=== PATIENT | female | born 1985 | race Two or more races ===

== ENCOUNTER 2019-02-25 22:29 | Emergency (ER) | payer OTHER ==
[~2019-02-25] VITALS: Ht 157.5 cm; Wt 62.0 kg
[2019-02-26] MEDS ORDERED: IBUPROFEN 600MG TABLET PO SCH (02:08)
[2019-02-26 02:47] VITALS: BP 131/86
== END 2019-02-26 02:48 | disposition home or self-care (01) ==
LOC: ER 22:29
DX: S16.1XXA Strain of muscle, fascia and tendon at neck level, initial encounter (principal); M25.511 Pain in right shoulder; V43.12XA Car passenger injured in collision with other type car in nontraffic accident, initial encounter; Y93.89 Activity, other specified; Y92.413 State road as the place of occurrence of the external cause; Y99.8 Other external cause status
CPT/HCPCS: 71045; 73030; 81025; 99283